=== PATIENT | male | born 1975 | race Caucasian/White ===

== ENCOUNTER 2018-08-02 12:53 | Emergency (ER) | payer SELFPAY ==
[~2018-08-02] VITALS: Ht 175.3 cm; Wt 68.0 kg
[~2018-08-02 12:53] MED LIST: CYCL10TA9 PO; HYDR-3714 PO
--- OUTSIDE RECORDS SUMMARY | 2018-08-02 12:58 | XMS REPORT ---
Author TIFFANY Richard [facility] Address [address] [place], [place] [address] Care Team Providers Care Fish Hatchery Worker Name Role Phone TIFFANY ALCAZAR PCP Unavailable Allergies and Adverse Reactions Name Reaction Notes codeine sulfate Plan of Treatment Planned Activity Comments Planned Date Planned Time Plan/Goal X-RAY EXAM OF SPINE 1 VIEW 07/12/2015 12:00 AM Medications Active Name Start Date Estimated Completion Date SIG Comments [place] 10-325 mg oral tablet 07/11/2015 take 1 tablet by oral route every 4- 6 hours as needed for pain Vyvanse 40 mg oral capsule 07/11/2015 08/10/2015 take 1 capsule (40 mg) by oral route once daily in the morning for 30 days Name Start Date Expiration Date SIG Comments cyclobenzaprine 10 mg oral tablet 06/11/2015 06/21/2015 take 1 tablet (10 mg) by oral route 2 times per day for 10 days Bactrim DS 800-160 mg oral tablet 07/17/2015 07/27/2015 take 1 tablet by oral route 2 times a day for 10 days Medrol (Alessio) 4 mg oral tablets,dose pack 07/17/2015 07/22/2015 take as directed for 5 days Discontinued Name Start Date Discontinued Date SIG Comments Ritalin 10 mg oral tablet 06/11/2015 06/18/2015 1/2 in am 10/12 at noon Problem List Description Status Onset ADD (attention deficit disorder) Active 07/04/2015 Low Back Pain Active 07/12/2015 Lumbar disc disease Active 07/12/2015 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 Vital Signs Date Time BP-Sys(mm[Hg] BP-Ritu(mm[Hg]) HR(bpm) RR(rpm) Temp WT HT HC BMI BSA BMI Percentile O2 Sat(%) 07/11/2015 2:12:00 PM 130 mmHg 70 mmHg 72 bpm 16 rpm 98.7 F 166 lbs 69 in 24.51 kg/m2 1.91 m2 100 % 06/18/2015 10:12:00 AM 128 mmHg 70 mmHg 70 bpm 18 rpm 98.2 F 170 lbs 69 in 25.1044 kg/m 1.9375 m 99 % 06/10/2015 7:32:00 AM 130 mmHg 70 mmHg 66 bpm 18 rpm 96.9 F 179 lbs 69 in 26.43 kg/m2 1.99 m2 100 % 06/06/2015 11:37:00 AM 130 mmHg 70 mmHg 62 bpm 18 rpm 97.5 F 176 lbs 69 in 25.9904 kg/m 1.9714 m 100 % Social History Name Description Comments smoking Never Alcohol Current some day Uses seatbelts Current every day Exercises regularly Current every day History of Procedures Date Ordered Description Order Status 07/12/2015 12:00 AM COMPLETE CBC W/AUTO DIFF WBC Returned 07/12/2015 12:00 AM COMPREHEN METABOLIC PANEL Returned 07/12/2015 12:00 AM LIPID PANEL Returned 06/06/2015 12:00 AM Decadron, Per 1 Mg [facility]# [address]-27 Reviewed 06/06/2015 12:00 AM Depo-Medrol, Per 80 Mg [facility]#9984-0410-99 Reviewed 06/06/2015 12:00 AM Toradol 60 Mg [facility]#0246-0853-54 Reviewed Results Summary Data and Description Results 07/22/2015 8:40 AM WBC 7.7 RBC 4.20 HGB 13.10 g/dLHCT 39.10 %MCV 93.0 fLMCH 31.20 pgMCHC 33.50 g/dLRDW CV 12.90 %MPV 9.50 fLPLT 237 %NEUT 69.90 %%LYMP 17.90 %%MONO 7.60 %%EOS 4.30 %%BASO 0.30 %#NEUT 5.35 #LYMP 1.37 #MONO 0.58 #EOS 0.33 #BASO 0.02 TRIGLYCERIDES 317.0 mg/dLCHOLESTEROL 186.0 mg/dLHDL 40.0 mg/ dLLDL (CALC) 83.0 mg/dLGLUCOSE 84.0 mg/dLSODIUM 140.0 mmol/LPOTASSIUM 4.20 mmol/ LCHLORIDE 107.0 mmol/LCO2 24.0 mmol/LBUN 13.0 mg/dLCREATININE 0.80 mg/dLSGOT/ AST 18.0 IU/LSGPT/ALT 17.0 IU/LALK PHOS 92.0 IU/LTOTAL PROTEIN 6.20 g/dLALBUMIN 3.80 g/dLTOTAL BILI 0.10 mg/dLCALCIUM 8.80 mg/dLeGFR >60 mL/min/1.73m History Of Immunizations Not available. History of Past Illness Name Date of Onset Comments Hay Fever Anxiety Asthma Chronic pain ADD (attention deficit disorder) 07/04/2015 Low Back Pain 07/12/2015 Lumbar disc disease 07/12/2015 ADD (attention deficit disorder) without hyperactivity 07/22/2015 Low Back Pain Jun 10 2015 7:33AM Sprain/Strain Jun 10 2015 7:33AM ADD (attention deficit disorder) Jun 10 2015 7:33AM Low Back Pain Jun 06 2015 11:38AM Muscle spasm of back Jun 06 2015 11:38AM Low Back Pain Jun 18 2015 10:12AM ADD (attention deficit disorder) Jun 18 2015 10:12AM Low Back Pain Jul 11 2015 2:12PM Lumbar disc disease Jul 11 2015 2:12PM Low Back Pain Jul 12 2015 8:47AM Lumbar disc disease Jul 12 2015 8:47AM Fatigue Jul 12 2015 8:47AM Family history of elevated blood lipids Jul 12 2015 8:47AM Low Back Pain Jul 12 2015 9:58AM Lumbar disc disease Jul 12 2015 9:58AM ADD (attention deficit disorder) without hyperactivity Jul 11 2015 2:12PM Payers Insurance Name Company Name Plan Name Plan Number Policy Number Policy Group Number [id number] N/A History of Encounters Visit Date Visit Type Provider 07/11/2015 Office visit TIFFANY DIAZ 06/18/2015 Office visit TIFFANY DIAZ 06/10/2015 Office visit TIFFANY DIAZ 06/06/2015 Office visit TIFFANY DIAZ
--- OUTSIDE RECORDS SUMMARY | 2018-08-02 12:58 | XMS REPORT | CCD ---
Author Author SIOMARA TURNER Unknown Address [address] [facility] [address] [place], [place] [phone] Care Team Providers Care Clinical Nursing Instructor Name Role Phone CARLEE CORRALES, TIFFANY Readphynasra CARLEE CORRALES, TIFFANY Stewart Vital Signs Unknown or Not Available. Allergies Unknown or Not Available. Procedures Unknown or Not Available. History of Immunizations Unknown or Not Available. Problems Unknown or Not Available. Results Unknown or Not Available. Active Medications Unknown or Not Available. Medications Administered During Visit Unknown or Not Available. Encounters Encounter Diagnosis Diagnosis Code Start Date LUMBAGO 7242 06/03/2015 Social History Smoking Status Code Start Date End Date Never smoker [id number] Patient Decision Aids Unknown or Not Available. Discharge Instructions You were admitted to [facility] on 06/03/2015 with a principal diagnosis of LUMBAGO. You were discharged from [facility] on 06/03/2015. Should you have any questions prior to discharge, please contact a member of your healthcare team. If you have left the hospital and have any questions, please contact your primary care physician. Chief Complaint and Reason For Visit Chief Complaint Date of Onset BACK PAIN Function Status Unknown or Not Available. Plan of Care Unknown or Not Available. Referral/Transition of Care Unknown or Not Available.
--- OUTSIDE RECORDS SUMMARY | 2018-08-02 12:58 | XMS REPORT ---
Author TIFFANY Richard [facility] Address [address] [facility] [address] [place], [place] [phone] Care Team Providers Care Robot Technician Name Role Phone TIFFANY ALCAZAR PCP Unavailable Allergies and Adverse Reactions Name Reaction Notes codeine sulfate Plan of Treatment Planned Activity Comments Planned Date Planned Time Plan/Goal X-RAY EXAM OF SPINE 1 VIEW 07/12/2015 12:00 AM Medications Active Name Start Date Estimated Completion Date SIG Comments [place] 10-325 mg oral tablet 07/11/2015 take 1 [...] 06/06/2015 12:00 AM Decadron, Per 1 Mg [facility]# [address]-10 Reviewed 06/06/2015 12:00 AM Depo-Medrol, Per 80 Mg [facility]#7852-1374-32 Reviewed 06/06/2015 12:00 AM Toradol 60 Mg [facility]#2644-4577-22 Reviewed Results Summary Data and Description Results [...] Policy Number Policy Group Number [id number] N/A History of Encounters Visit Date Visit Type Provider 07/11/2015 Office visit TIFFANY DIAZ 06/18/2015 Office visit TIFFANY DIAZ 06/10/2015 Office visit TIFFANY DIAZ 06/06/2015 Office visit TIFFANY DIAZ
--- OUTSIDE RECORDS SUMMARY | 2018-08-02 12:59 | XMS REPORT ---
Author Author TIFFANY ALCAZAR [facility] Address [address] [facility] [address] [place], [place] [phone] Care Team Providers Care Boiler Engineer Name Role Phone TIFFANY ALCAZAR PCP Unavailable Allergies and Adverse Reactions Name Reaction Notes codeine sulfate Plan of Treatment Planned Activity Comments Planned Date Planned Time Plan/Goal COMPLETE CBC W/AUTO DIFF WBC 07/12/2015 12:00 AM COMPREHEN METABOLIC PANEL 07/12/2015 12:00 AM LIPID PANEL 07/12/2015 12:00 AM Medications Active Name Start Date Estimated Completion Date SIG Comments [place] 10-325 mg oral tablet 07/11/2015 take 1 [...] 2 times per day for 10 days Discontinued Name Start Date Discontinued Date SIG Comments Ritalin 10 mg oral tablet 06/11/2015 06/18/2015 1/2 in am 1/2 at noon Problem List Description Status Onset ADD (attention deficit disorder) Active 07/04/2015 Low Back Pain Active 07/12/2015 Lumbar disc disease Active 07/12/2015 Vital Signs Date Time BP-Sys(mm[Hg] BP-Ritu(mm[Hg]) HR(bpm) [...] of Procedures Date Ordered Description Order Status 06/06/2015 12:00 AM Decadron, Per 1 Mg [facility]# [id number] Reviewed 06/06/2015 12:00 AM Depo-Medrol, Per 80 Mg [facility]#7561-0408-31 Reviewed 06/06/2015 12:00 AM Toradol 60 Mg [facility]#6787-045[address]-92 Reviewed Results Summary Not available. History Of Immunizations Not available. History of Past Illness Name Date of Onset Comments Hay Fever Anxiety Asthma Chronic pain ADD (attention deficit disorder) 07/04/2015 Low Back Pain 07/12/2015 Lumbar disc disease 07/12/2015 Low Back Pain Jun 10 2015 7:33AM Sprain/Strain Jun 10 2015 7:33AM ADD (attention deficit disorder) Jun 10 2015 7:33AM Low Back Pain Jun 06 2015 11:38AM Muscle spasm of back Jun 06 2015 11:38AM Low Back Pain Jun 18 2015 10:12AM ADD (attention deficit disorder) Jun 18 2015 10:12AM Low Back Pain Jul 11 2015 2:12PM ADD (attention deficit disorder) Jul 11 2015 2:12PM Lumbar disc disease Jul 11 2015 2:12PM Low Back Pain Jul 12 2015 8:47AM Lumbar disc disease Jul 12 2015 8:47AM Fatigue Jul 12 2015 8:47AM Family history of elevated blood lipids Jul 12 2015 8:47AM Payers Insurance Name Company Name Plan Name Plan Number Policy Number Policy Group Number [id number] N/A History of Encounters Visit Date Visit Type Provider 07/11/2015 Office visit TIFFANY DIAZ 06/18/2015 Office visit TIFFANY DIAZ 06/10/2015 Office visit TIFFANY DIAZ 06/06/2015 Office visit TIFFANY DIAZ
--- OUTSIDE RECORDS SUMMARY | 2018-08-02 12:59 | XMS REPORT ---
Author Author TIFFANY ALCAZAR [facility] Address [address] [facility] [address] [place], [place] [phone] Care Team Providers Care Sword Swallower Name Role Phone TIFFANY ALCAZAR PCP Unavailable Allergies and Adverse Reactions Name Reaction Notes codeine sulfate Plan of Treatment Not available. Medications Active Name Start Date Estimated Completion Date SIG Comments Ritalin 10 mg oral tablet 06/11/2015 07/11/20152 in am 1/ at noon [place] 5-325 mg oral tablet 06/11/2015 take 1 tablet by oral route every 4-6 hours as needed for pain cyclobenzaprine 10 mg oral tablet 06/11/2015 06/21/2015 take 1 tablet (10 mg) by oral route 2 times per day for 10 days Problem List Not available. Vital Signs Date Time BP-Sys(mm[Hg] BP-Ritu(mm[Hg]) HR(bpm) RR(rpm) Temp WT HT HC BMI BSA BMI Percentile O2 Sat(%) 06/10/2015 7:32:00 AM 130 mmHg 70 mmHg [...] regularly Current every day History of Procedures Not available. Results Summary Not available. History Of Immunizations Not available. History of Past Illness Name Date of Onset Comments Hay Fever Anxiety Asthma Chronic pain Low Back Pain Jun 10 2015 7:33AM Sprain/Strain Jun 10 2015 7:33AM ADD (attention deficit disorder) Jun 10 2015 7:33AM Low Back Pain Jun 06 2015 11:38AM Muscle spasm of back Jun 06 2015 11:38AM Payers Not available. History of Encounters Visit Date Visit Type Provider 06/10/2015 Office visit TIFFANY DIAZ 06/06/2015 Office visit TIFFANY DIAZ
--- OUTSIDE RECORDS SUMMARY | 2018-08-02 12:59 | XMS REPORT ---
Author Author TIFFANY ALCAZAR [facility] Address [address] [facility] [address] [place], [place] [phone] Care Team Providers Care Screen Repairer Crusher Name Role Phone TIFFANY ALCAZAR PCP Unavailable Allergies and Adverse Reactions Name Reaction Notes codeine sulfate Plan of Treatment Not available. Medications Active Name Start Date Estimated Completion Date SIG Comments [place] 10-325 mg oral tablet 07/11/2015 take 1 [...] oral tablet 06/11/2015 06/18/2015 1/2 in am 1 at noon Problem List Description Status Onset [...] 06/06/2015 12:00 AM Decadron, Per 1 Mg [facility]# [address]-25 Reviewed 06/06/2015 12:00 AM Depo-Medrol, Per 80 Mg [facility]#0660-[address]-42 Reviewed 06/06/2015 12:00 AM Toradol 60 Mg [facility]#0391-8818-15 Reviewed Results Summary Not available. History Of [...] Lumbar disc disease Jul 11 2015 2:12PM Payers Insurance Name Company Name Plan Name Plan Number Policy Number Policy Group Number [id number] N/A History of Encounters Visit Date Visit Type Provider 07/11/2015 Office visit TIFFANY DIAZ 06/18/2015 Office visit TIFFANY DIAZ 06/10/2015 Office visit TIFFANY DIAZ 06/06/2015 Office visit TIFFANY DIAZ
--- OUTSIDE RECORDS SUMMARY | 2018-08-02 12:59 | XMS REPORT ---
Author Author TIFFANY ALCAZAR [facility] Address [address] [facility] [address] [place], [place] [phone] Care Team Providers Care Bag Filler Name Role Phone TIFFANY ALCAZAR PCP Unavailable Allergies and Adverse Reactions Name Reaction Notes codeine sulfate Plan of Treatment Planned Activity Comments Planned Date Planned Time Plan/Goal COMPLETE CBC W/AUTO DIFF WBC 07/12/2015 12:00 AM COMPREHEN METABOLIC PANEL 07/12/2015 12:00 AM LIPID PANEL 07/12/2015 12:00 AM X-RAY EXAM OF SPINE 1 VIEW 07/12/2015 12:00 AM Medications Active Name Start Date Estimated Completion Date SIG Comments [place] 10-325 mg oral tablet 07/11/2015 take 1 tablet by oral route every 4- 6 hours as needed for pain Vyvanse 40 mg oral capsule 07/11/2015 08/10/2015 take 1 capsule (40 mg) by oral route once daily in the morning for 30 days Bactrim DS 800-160 mg oral tablet 07/17/2015 07/27/2015 take 1 tablet by oral route 2 times a day for 10 days Medrol (Alessio) 4 mg oral tablets,dose pack 07/17/2015 07/22/2015 take as directed for 5 days Name Start Date Expiration Date SIG [...] 06/06/2015 12:00 AM Decadron, Per 1 Mg [facility]# [address]-36 Reviewed 06/06/2015 12:00 AM Depo-Medrol, Per 80 Mg [facility]#7993-7558-09 Reviewed 06/06/2015 12:00 AM Toradol 60 Mg [facility]#3013-5525-15 Reviewed Results Summary Not available. History Of [...] Policy Number Policy Group Number Start Date [facility] [id number] N/A History of Encounters Visit Date Visit Type Provider 07/11/2015 Office visit TIFFANY DIAZ 06/18/2015 Office visit TIFFANY DIAZ 06/10/2015 Office visit TIFFANY DIAZ 06/06/2015 Office visit TIFFANY DIAZ
--- OUTSIDE RECORDS SUMMARY | 2018-08-02 12:59 | XMS REPORT ---
Author TIFFANY Richard [facility] Address [address] [facility] [address] [place], [place] [phone] Care Team Providers Care Clay Dry Press Helper Name Role Phone TIFFANY ALCAZAR PCP Unavailable Allergies and Adverse Reactions Name Reaction Notes codeine sulfate Plan of Treatment Planned Activity Comments Planned Date Planned Time Plan/Goal X-RAY EXAM OF SPINE 1 VIEW 07/12/2015 12:00 AM Medications Active Name Start Date Estimated Completion Date SIG Comments [place] 10-325 mg oral tablet 07/11/2015 take 1 tablet by oral route every 4- 6 hours as needed for pain Vyvanse 40 mg oral capsule 07/11/2015 08/10/2015 take 1 capsule (40 mg) by oral route once daily in the morning for 30 days Bactrim DS 800-160 mg oral tablet 07/17/2015 07/27/2015 take 1 tablet by oral route 2 times a day for 10 days Name Start Date Expiration Date SIG Comments cyclobenzaprine 10 mg oral tablet 06/11/2015 06/21/2015 take 1 tablet (10 mg) by oral route 2 times per day for 10 days Medrol (Alessio) 4 [...] 06/06/2015 12:00 AM Decadron, Per 1 Mg [facility]# [address]-70 Reviewed 06/06/2015 12:00 AM Depo-Medrol, Per 80 Mg [facility]#5269-1372-32 Reviewed 06/06/2015 12:00 AM Toradol 60 Mg [facility]#0905-3556-19 Reviewed Results Summary Data and Description Results [...] Policy Number Policy Group Number [facility] Date [id number] N/A History of Encounters Visit Date Visit Type Provider 07/11/2015 Office visit TIFFANY DIAZ 06/18/2015 Office visit TIFFANY DIAZ 06/10/2015 Office visit TIFFANY DIAZ 06/06/2015 Office visit TIFFANY DIAZ
--- OUTSIDE RECORDS SUMMARY | 2018-08-02 12:59 | XMS REPORT ---
Author TIFFANY Richard [facility] Address [address] [facility] [address] [place], [place] [address] Care Team Providers Care Chief Ii Dispatcher Name Role Phone TIFFANY ALCAZAR PCP Unavailable Allergies and Adverse Reactions Name Reaction Notes codeine sulfate Plan of Treatment Planned Activity Comments Planned Date Planned Time Plan/Goal X-RAY EXAM OF SPINE 1 VIEW 07/12/2015 12:00 AM Medications Active Name Start Date Estimated Completion Date SIG Comments [place] 10-325 mg oral tablet 07/11/2015 take 1 [...] Mg [facility]# [address]-92 Reviewed 06/06/2015 12:00 AM Depo-Medrol, Per 80 Mg [facility]#3117-1049-11 Reviewed 06/06/2015 12:00 AM Toradol 60 Mg [facility]#8293-3827-89 Reviewed Results Summary Data and Description Results [...] Policy Number Policy Group Number [facility] Date [facility] [id number] N/A History of Encounters Visit Date Visit Type Provider 07/11/2015 Office visit TIFFANY DIAZ 06/18/2015 Office visit TIFFANY DIAZ 06/10/2015 Office visit TIFFANY DIAZ 06/06/2015 Office visit TIFFANY DIAZ
--- OUTSIDE RECORDS SUMMARY | 2018-08-02 13:00 | XMS REPORT ---
Author TIFFANY Richard [facility] Address [address] [facility] [address] [place], [place] [address] Care Team Providers Care Finance Clerk Name Role Phone TIFFANY ALCAZAR PCP Unavailable Allergies and Adverse Reactions Name Reaction Notes codeine sulfate Plan of Treatment Planned Activity Comments Planned Date Planned Time Plan/Goal X-RAY EXAM OF SPINE 1 VIEW 07/12/2015 12:00 AM Medications Active Name Start Date Estimated Completion Date SIG Comments [place] 10-325 mg oral tablet 07/11/2015 take 1 [...] 06/06/2015 12:00 AM Decadron, Per 1 Mg [facility]# [address]-18 Reviewed 06/06/2015 12:00 AM Depo-Medrol, Per 80 Mg [facility]#6958-7191-05 Reviewed 06/06/2015 12:00 AM Toradol 60 Mg [facility]#2089-3887-40 Reviewed Results Summary Data and Description Results [...] Policy Number Policy Group Number [id number] N/A History of Encounters Visit Date Visit Type Provider 07/11/2015 Office visit TIFFANY DIAZ 06/18/2015 Office visit TIFFANY DIAZ 06/10/2015 Office visit TIFFANY DIAZ 06/06/2015 Office visit TIFFANY DIAZ
--- OUTSIDE RECORDS SUMMARY | 2018-08-02 13:00 | XMS REPORT ---
Author Author TIFFANY ALCAZAR [facility] Address [address] [facility] [address] [place], [place] [phone] Care Team Providers Care Xerox Machine Assembler Name Role Phone TIFFANY ALCAZAR PCP Unavailable [...] Start Date Estimated Completion Date SIG Comments [place] 10-325 mg oral tablet 07/11/2015 take 1 [...] Comments Ritalin 10 mg oral tablet 06/11/2015 06/18/20152 in am 10/12 at noon Problem List [...] 06/06/2015 12:00 AM Decadron, Per 1 Mg [facility]# [address]-06 Reviewed 06/06/2015 12:00 AM Depo-Medrol, Per 80 Mg [facility]#5160-7483-54 Reviewed 06/06/2015 12:00 AM Toradol 60 Mg [facility]#9042-3859-34 Reviewed Results Summary Not available. History Of [...] Lumbar disc disease Jul 12 2015 9:58AM Payers Insurance Name Company Name Plan Name Plan Number Policy Number Policy Group Number Start Date [facility] [id number] N/A History of Encounters Visit Date Visit Type Provider 07/11/2015 Office visit TIFFANY DIAZ 06/18/2015 Office visit TIFFANY DIAZ 06/10/2015 Office visit TIFFANY DIAZ 06/06/2015 Office visit TIFFANY DIAZ
--- OUTSIDE RECORDS SUMMARY | 2018-08-02 13:00 | XMS REPORT ---
Author TIFFANY Richard [facility] Address [address] [facility] [address] [place], [place] [address] Care Team Providers Care Tower Switch Operator Name Role Phone TIFFANY ALCAZAR PCP Unavailable Allergies and Adverse Reactions Name Reaction Notes codeine sulfate Plan of Treatment Planned Activity Comments Planned Date Planned Time Plan/Goal X-RAY EXAM OF SPINE 1 VIEW 07/12/2015 12:00 AM Medications Active Name Start Date Estimated Completion Date SIG Comments [place] 10-325 mg oral tablet 07/11/2015 take 1 [...] 12:00 AM Decadron, Per 1 Mg [facility]# [address]-27 Reviewed 06/06/2015 12:00 AM Depo-Medrol, Per 80 Mg [facility]#4844-3025-61 Reviewed 06/06/2015 12:00 AM Toradol 60 Mg [facility]#1119-9859-16 Reviewed Results Summary Data and Description Results [...] Policy Number Policy Group Number [facility] Date [id number] N/A History of Encounters Visit Date Visit Type Provider 07/11/2015 Office visit TIFFANY DIAZ 06/18/2015 Office visit TIFFANY DIAZ 06/10/2015 Office visit TIFFANY DIAZ 06/06/2015 Office visit TIFFANY DIAZ
--- OUTSIDE RECORDS SUMMARY | 2018-08-02 13:01 | XMS REPORT ---
Author Author TIFFANY ALCAZAR [facility] Address [address] [place], [place] [id number] Care Team Providers Care Delivery Table Operator Name Role Phone TIFFANY ALCAZAR PCP Unavailable Allergies and Adverse Reactions Name Reaction Notes codeine sulfate Plan of Treatment Not available. Medications Active Name Start Date Estimated Completion Date SIG Comments [place] 5-325 mg oral tablet 06/18/2015 take 1 tablet by oral route every 4-6 hours as needed for pain Vyvanse 30 mg oral capsule 06/18/2015 take 1 capsule (30 mg) by oral route once daily in the morning Name Start Date Expiration Date SIG Comments cyclobenzaprine 10 mg oral tablet 06/11/2015 06/21/2015 take 1 tablet (10 mg) by oral route 2 times per day for 10 days Discontinued Name Start Date Discontinued Date SIG Comments Ritalin 10 mg oral tablet 06/11/2015 06/18/2015 1/2 in am 1 at noon Problem List Description Status Onset ADD (attention deficit disorder) Active 07/04/2015 Vital Signs Date Time BP-Sys(mm[Hg] BP-Ritu(mm[Hg]) HR(bpm) RR(rpm) Temp WT HT HC BMI BSA BMI Percentile O2 Sat(%) 06/18/2015 10:12:00 AM 128 mmHg 70 mmHg 70 bpm 18 rpm 98.2 F 170 lbs 69 in 25.10 kg/m2 1.94 m2 99 % 06/10/2015 7:32:00 AM 130 mmHg 70 mmHg 66 bpm 18 rpm 96.9 F 179 lbs 69 in 26.4334 kg/m 1.9882 m 100 % 06/06/2015 11:37:00 AM 130 mmHg 70 mmHg 62 bpm 18 rpm 97.5 F 176 lbs 69 in 25.99 kg/m2 1.97 m2 100 % Social History Name Description Comments smoking Never Alcohol Current some day Uses seatbelts Current every day Exercises regularly Current every day History of Procedures Date Ordered Description Order Status 06/06/2015 12:00 AM Decadron, Per 1 Mg [facility]# [address]-43 Reviewed 06/06/2015 12:00 AM Depo-Medrol, Per 80 Mg [facility]#3919-6591-80 Reviewed 06/06/2015 12:00 AM Toradol 60 Mg [facility]#[id number] Reviewed Results Summary Not available. History Of Immunizations Not available. History of Past Illness Name Date of Onset Comments Hay Fever Anxiety Asthma Chronic pain ADD (attention deficit disorder) 07/04/2015 Low Back Pain Jun 10 2015 7:33AM Sprain/Strain Jun 10 2015 7:33AM ADD (attention deficit disorder) Jun 10 2015 7:33AM Low Back Pain Jun 06 2015 11:38AM Muscle spasm of back Jun 06 2015 11:38AM Low Back Pain Jun 18 2015 10:12AM ADD (attention deficit disorder) Jun 18 2015 10:12AM Payers Insurance Name Company Name Plan Name Plan Number Policy Number Policy Group Number [id number]A History of Encounters Visit Date Visit Type Provider 06/18/2015 Office visit TIFFANY DIAZ 06/10/2015 Office visit TIFFANY DIAZ 06/06/2015 Office visit TIFFANY DIAZ
--- OUTSIDE RECORDS SUMMARY | 2018-08-02 13:01 | XMS REPORT ---
Author TIFFANY [facility] Address [address] [place], [place] [id number] Care Team Providers Care Diesel Service Journeyman Name Role Phone TIFFANY ALCAZAR PCP Unavailable Allergies and Adverse Reactions Name Reaction Notes codeine sulfate Plan of Treatment Planned Activity Comments Planned Date Planned Time Plan/Goal X-RAY EXAM OF SPINE 1 VIEW 07/12/2015 12:00 AM Medications Active Name Start Date Estimated Completion Date SIG Comments [place] 10-325 mg oral tablet 07/11/2015 take 1 [...] Per 1 Mg [facility]# [address]-03 Reviewed 06/06/2015 12:00 AM Depo-Medrol, Per 80 Mg [facility]#[id number] Reviewed 06/06/2015 12:00 AM Toradol 60 Mg [facility]#[id number] Reviewed Results Summary Data and Description Results [...] Policy Number Policy Group Number [id number] N/A History of Encounters Visit Date Visit Type Provider 07/11/2015 Office visit TIFFANY DIAZ 06/18/2015 Office visit TIFFANY DIAZ 06/10/2015 Office visit TIFFANY DIAZ 06/06/2015 Office visit TIFFANY DIAZ
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
[2018-08-02] MEDS ORDERED: LIDOCAINE 2% 20 ML (XYLOCAINE) VIAL INJ ONE (13:30)
--- NOTE | 2018-08-02 13:31 | ED Integumentary General ---
General Chief Complaint: Skin/Wound Problems Stated Complaint: ABCESS ON BACK Nursing Triage Note: ARRIVED VIA AMB WITH COMPLAINTS OF ABSCESS ON BACK FOR SEVERAL DAYS. HAS A HX OF ABSCESS. Source: patient Exam Limitations: no limitations History of Present Illness Date Seen by Provider: Aug 02, 2018 Time Seen by Provider: 13:28 Initial Comments To ER with a tender abscess on his back for several days. States this is been there for several years but only recently became red and painful. Also states that he's got some dry spots on his years which he thinks may be related to this. Also states he is coughing up "jelly" and "the occasional Mao". Also states that these spots on his years "move when you turn the lights on". He also states that his skin has slime on it and when he turns the shower water on he bubbles up all over and he is urinating jelly. I asked him about methamphetamine use and he states "no, that's what I dealt with at [facility], this is not a hallucination or drugs" Timing/Duration: just prior to arrival Severity: moderate Allergies and Home Medications Allergies Coded Allergies: codeine (Unverified Allergy, Unknown, ITCHING, FLUSHED, 06/13/14) Home Medications Cyclobenzaprine Hcl 10 Mg Tablet, 1 EACH PO Q8HR PRN Prescribed by: MARIO ALBERTO MARTINO on 06/13/14 1103 Hydrocodone Bit/Acetaminophen 1 Each Tablet, 1-2 EACH PO Q6HR PRN PRN for PAIN Prescribed by: MARIO ALBERTO MARTINO on 06/13/14 1103 Sulfamethoxazole/Trimethoprim 1 Each Tablet, 1 EACH PO BID Prescribed by: KENNETH BRITTON on 08/02/18 1332 Patient Home Medication List Home Medication List Reviewed: Yes Review of Systems Review of Systems Constitutional: see HPI EENTM: see HPI Respiratory: no symptoms reported Cardiovascular: no symptoms reported Genitourinary: no symptoms reported Musculoskeletal: no symptoms reported Skin: see HPI Psychiatric/Neurological: No Symptoms Reported Endocrine: No Symptoms Reported Hematologic/Lymphatic: No Symptoms Reported Past Pjgktsq-Jufulu-Xmswas Hx Patient Social History Recent Foreign Travel: No Contact w/Someone Who Travel: No Recent Infectious Disease Expo: No Immunizations Up To Date Tetanus Booster (TDap): More than 5yrs Past Medical History Surgeries: No Respiratory: No Cardiac: No Neurological: No Reproductive Disorders: No Genitourinary: No Gastrointestinal: No Musculoskeletal: No Endocrine: No Cancer: No Psychosocial: No Physical Exam Vital Signs Vital Signs - First Documented 08/02/18 13:22 Temp 97.2 Pulse 71 Resp 18 B/P (MAP) 138/80 (99) Pulse Ox 97 O2 Delivery Room Air Capillary Refill : Less Than 3 Seconds General Appearance: WD/WN, no apparent distress HEENT: PERRL/EOMI, normal ENT inspection, TMs normal, pharynx normal, other ( half centimeter area to the antitragus of each ear of dry scaly skin without fluctuance or cellulitis.) Neck: non-tender, full range of motion Respiratory: no respiratory distress, no accessory muscle use Gastrointestinal: normal bowel sounds, non tender Neurologic/Psychiatric: alert, oriented x 3, other (oriented to person place time and situation. 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 1 cm incision was then made with 11 blade scalpel. Moderate amount of curd-like purulent material expressed. A drain could've been placed, but due to the patient's drug abuse and current delusions I do not trust him to properly manage packing of this at home and I don't think that a Rose drain would be appropriate as he would not likely return to have this removed. This was left open, covered with gauze. Progress/Results/Core Measures Results/Orders Lab Results Laboratory Tests Test 08/02/18 13:50 08/02/18 14:16 Range/Units White Blood Count 6.5 4.3-11.0 10^3/uL Red Blood Count 4.83 4.35-5.85 10^6/uL Hemoglobin 14.4 13.3-17.7 G/DL Hematocrit 43 40-54 % Mean Corpuscular Volume 88 80-99 FL Mean Corpuscular Hemoglobin 30 25-34 PG Mean Corpuscular Hemoglobin Concent 34 32-36 G/DL Red Cell Distribution Width 12.8 10.0-14.5 % Platelet Count 270 130-400 10^3/uL Mean Platelet Volume 9.0 7.4-10.4 FL Neutrophils (%) (Auto) 75 42-75 % Lymphocytes (%) (Auto) 15 12-44 % Monocytes (%) (Auto) 8 0-12 % Eosinophils (%) (Auto) 2 0-10 % Basophils (%) (Auto) 1 0-10 % Neutrophils # (Auto) 4.9 1.8-7.8 X 10^3 Lymphocytes # (Auto) 1.0 1.0-4.0 X 10^3 Monocytes # (Auto) 0.5 0.0-1.0 X 10^3 Eosinophils # (Auto) 0.1 0.0-0.3 10^3/uL Basophils # (Auto) 0.0 0.0-0.1 10^3/uL Sodium Level 138 135-145 MMOL/L Potassium Level 4.1 3.6-5.0 MMOL/L Chloride Level 102 98-107 MMOL/L Carbon Dioxide Level 24 21-32 MMOL/L Anion Gap 12 5-14 MMOL/L Blood Urea Nitrogen 15 7-18 MG/DL Creatinine 1.11 0.60-1.30 MG/DL Estimat Glomerular Filtration Rate > 60 BUN/Creatinine Ratio 14 Glucose Level 95 70-105 MG/DL Calcium Level 9.9 8.5-10.1 MG/DL Corrected Calcium 8.5-10.1 MG/DL Total Bilirubin 0.5 0.1-1.0 MG/DL Aspartate Amino Transf (AST/SGOT) 19 5-34 U/L Alanine Aminotransferase (ALT/SGPT) 19 0-55 U/L Alkaline Phosphatase 69 40-136 U/L Total Protein 7.6 6.4-8.2 GM/DL Albumin 4.6 H 3.2-4.5 GM/DL Salicylates Level < 5.0 L 5.0-20.0 MG/DL Acetaminophen Level < 10 L 10-30 UG/ML Serum Alcohol < 10 <10 MG/DL Urine Color YELLOW Urine Clarity SLIGHTLY CLOUDY Urine pH 6.5 5-9 Urine Specific [place] 1.015 L 1.016-1.022 Urine Protein 1+ H NEGATIVE Urine Glucose (UA) NEGATIVE NEGATIVE Urine Ketones NEGATIVE NEGATIVE Urine Nitrite NEGATIVE NEGATIVE Urine Bilirubin NEGATIVE NEGATIVE Urine Urobilinogen NORMAL NORMAL MG/DL Urine Leukocyte Esterase 3+ H NEGATIVE Urine RBC (Auto) 1+ H NEGATIVE Urine RBC 0-2 /HPF Urine WBC 10-25 H /HPF Urine Squamous Epithelial Cells 2-5 /HPF Urine Crystals PRESENT H /LPF Urine Amorphous Sediment FEW GRACIELA URATES H /LPF Urine Bacteria FEW H /HPF Urine Casts NONE /LPF Urine Mucus SMALL H /LPF Urine Other FEW SPERM H /HPF Urine Culture Indicated YES Urine Opiates Screen NEGATIVE NEGATIVE Urine Oxycodone Screen NEGATIVE NEGATIVE Urine Methadone Screen NEGATIVE NEGATIVE Urine Propoxyphene Screen NEGATIVE NEGATIVE Urine Barbiturates Screen NEGATIVE NEGATIVE Ur Tricyclic Antidepressants Screen NEGATIVE NEGATIVE Urine Phencyclidine Screen NEGATIVE NEGATIVE Urine Amphetamines Screen POSITIVE H NEGATIVE Urine Methamphetamines Screen NEGATIVE NEGATIVE Urine Benzodiazepines Screen NEGATIVE NEGATIVE Urine Cocaine Screen NEGATIVE NEGATIVE Urine Cannabinoids Screen NEGATIVE NEGATIVE My Orders Orders - KENNETH BRITTON IT PROFESSIONAL Lidocaine 2% Injection 20 Ml (Xylocaine (08/02/18 13:30) Wound Culture (08/02/18 13:27) Lidocaine 1% Inj 20 Ml (Xylocaine 1% Inj (08/02/18 13:32) Ua Culture If Indicated (08/02/18 13:42) Drug Screen Stat (Urine) (08/02/18 13:42) Cbc With Automated Diff (08/02/18 13:42) Comprehensive Metabolic Panel (08/02/18 13:42) Alcohol (08/02/18 13:42) Salicylate (08/02/18 13:42) Acetaminophen (08/02/18 13:42) Urine Culture (08/02/18 14:16) Medications Given in ED Current Medications Medications Dose Ordered Sig/Muriel Route Start Time Stop Time Status Last Admin Dose Admin Lidocaine HCl 20 ml STK-MED ONCE .ROUTE 08/02/18 13:32 08/02/18 13:33 DC 08/02/18 13:39 20 ML Vital Signs/I&O 08/02/18 13:22 Temp 97.2 Pulse 71 Resp 18 B/P (MAP) 138/80 (99) Pulse Ox 97 O2 Delivery Room Air Blood Pressure Mean: 99 Departure Impression Primary Impression: Inflamed sebaceous cyst Additional Impressions: Urinary tract infection Amphetamine abuse Delusions of parasitosis Disposition: 01 HOME, SELF-CARE Condition: Stable Departure-Patient Inst. Decision time for Depature: 13:31 Referrals: NO,LOCAL PHYSICIAN (PCP/Family) Primary Care Physician Patient Instructions: SEBACEOUS CYST-I&D Add. Discharge Instructions: 1. You need to follow-up with primary care to further evaluate your symptoms. Return to the emergency room for any concerns. A list of local physicians has been provided. All discharge instructions reviewed with patient and/or family. Voiced understanding. Scripts Sulfamethoxazole/Trimethoprim (Bactrim Ds Tablet) 1 Each Tablet 1 EACH PO BID, #14 TAB Prov: KENNETH BRITTON APRN 08/02/18 Work/School Note: Local Medical Staff Listing KENNETH BRITTON APRN Aug 02, 2018 13:31
[2018-08-02] MEDS ORDERED: LIDOCAINE 1% INJ 20 ML 20 ML VIAL ONE (13:32)
[2018-08-02] MEDS ORDERED: SULF1TAB35 PO (13:32)
[2018-08-02 13:56] LABS: BASOPHILS % (AUTO) 1 % (0-10); EOSINOPHILS # (AUTO) 0.1 10^3/uL (0.0-0.3); EOSINOPHILS % (AUTO) 2 % (0-10); HEMATOCRIT 43 % (40-54); HEMOGLOBIN 14.4 G/DL (13.3-17.7); LYMPHOCYTES % (AUTO) 15 % (12-44); MEAN CORPUSCULAR HEMOGLOBIN 30 PG (25-34); MEAN CORPUSCULAR HGB CONC 34 G/DL (32-36); MEAN CORPUSCULAR VOLUME 88 FL (80-99); MONOCYTES # (AUTO) 0.5 X 10^3 (0.0-1.0); MONOCYTES % (AUTO) 8 % (0-12); NEUTROPHILS # (AUTO) 4.9 X 10^3 (1.8-7.8); NEUTROPHILS % (AUTO) 75 % (42-75); PLATELET COUNT 270 10^3/uL (130-400); RED BLOOD COUNT 4.83 10^6/uL (4.35-5.85); RED CELL DISTRIBUTION WIDTH 12.8 % (10.0-14.5); WHITE BLOOD COUNT 6.5 10^3/uL (4.3-11.0)
[2018-08-02 14:21] LABS: ACETAMINOPHEN < 10 UG/ML (10-30); ALANINE AMINOTRANSFERASE 19 U/L (0-55); ALBUMIN 4.6 GM/DL (3.2-4.5); ALKALINE PHOSPHATASE 69 U/L (40-136); BILIRUBIN,TOTAL 0.5 MG/DL (0.1-1.0); BUN/CREATININE RATIO 14; CALCIUM 9.9 MG/DL (8.5-10.1); CARBON DIOXIDE 24 MMOL/L (21-32); CHLORIDE 102 MMOL/L (98-107); CREATININE SERUM 1.11 MG/DL (0.60-1.30); GFR ESTIMATED > 60; GLUCOSE 95 MG/DL (70-105); POTASSIUM 4.1 MMOL/L (3.6-5.0); SALICYLATE < 5.0 MG/DL (5.0-20.0); SODIUM 138 MMOL/L (135-145); TOTAL PROTEIN 7.6 GM/DL (6.4-8.2)
[2018-08-02 14:23] LABS: BILIRUBIN,URINE NEGATIVE (NEGATIVE); CLARITY,URINE SLIGHTLY CLOUDY; COLOR,URINE YELLOW; GLUCOSE, URINE (UA) NEGATIVE (NEGATIVE); KETONES,URINE NEGATIVE (NEGATIVE); LEUKOCYTE ESTERASE ,URINE 3+ (NEGATIVE); NITRITE,URINE NEGATIVE (NEGATIVE); PH,URINE 6.5 (5-9); PROTEIN,URINE 1+ (NEGATIVE); UROBILINOGEN,URINE NORMAL (NORMAL)
[2018-08-02 14:36] LABS: AMPHETAMINE SCREEN, URINE POSITIVE (NEGATIVE); BACTERIA,URINE FEW /HPF; BARBITURATE SCREEN URINE NEGATIVE (NEGATIVE); BENZODIAZEPINES SCREEN URINE NEGATIVE (NEGATIVE); CANNABINOID SCREEN, URINE NEGATIVE (NEGATIVE); COCAINE SCREEN URINE NEGATIVE (NEGATIVE); METHADONE STAT NEGATIVE (NEGATIVE); METHAMPHETAMINE SCREEN URINE S NEGATIVE (NEGATIVE); OPIATE SCREEN URINE NEGATIVE (NEGATIVE); OXYCODONE STAT NEGATIVE (NEGATIVE); PROPOXYPHENE STAT NEGATIVE (NEGATIVE); RBC,URINE 0-2 /HPF; TRICYCLIC ANTIDEPRESSANTS SCRE NEGATIVE (NEGATIVE)
[2018-08-02 14:37] LABS: AMORPHOUS SEDIMENT,UR FEW AMOR URATES /LPF; URINE OTHER FEW SPERM /HPF
[2018-08-02 14:50] VITALS: BP 138/80
== END 2018-08-02 14:50 | disposition home or self-care (01) ==
LOC: EDUNIT# 12:53 → ER 12:55
DX: L72.3 Sebaceous cyst (principal); N39.0 Urinary tract infection, site not specified; F15.10 Other stimulant abuse, uncomplicated; F22 Delusional disorders; Z88.5 Allergy status to narcotic agent
CPT/HCPCS: 10060; 36415; 80053; 80306; 80320; 80329; 81000; 85025; 87070; 87088; 87205

== ENCOUNTER 2021-02-07 16:00 | Emergency (ER) | payer OTHER ==
[~2021-02-07] VITALS: Ht 175 cm; Wt 77.0 kg
[~2021-02-07 16:00] MED LIST changes: +SULF1TAB35 PO
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
[2021-02-07] MEDS ORDERED: AMOX500C2 PO (17:00)
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
[2021-02-07 17:18] VITALS: BP 128/70
== END 2021-02-07 17:18 | disposition home or self-care (01) ==
LOC: EDUNIT# 16:00 → ER 16:02
DX: S02.2XXA Fracture of nasal bones, initial encounter for closed fracture (principal); S00.11XA Contusion of right eyelid and periocular area, initial encounter; S00.83XA Contusion of other part of head, initial encounter; R40.2410 Glasgow coma scale score 13-15, unspecified time; Z87.891 Personal history of nicotine dependence; Z88.5 Allergy status to narcotic agent; W10.9XXA Fall (on) (from) unspecified stairs and steps, initial encounter
CPT/HCPCS: 70450; 70486; 72125